=== PATIENT | female | born 1955 | race African-American/Black ===

== ENCOUNTER 2021-04-30 15:13 | Inpatient (IN) | payer OTHER, BC ==
[~2021-04-30] VITALS: Ht 157.5 cm; Wt 77.6 kg
--- NOTE | ~2021-04-30 | EMS ---
[place] [address] EMS Patient Care Report Name: ALEKSEY MALDONADO Room #: REG MICAELA Green#: [id number] Admission: 04/30/21 Attend Phys: Discharge: Date of : 53 Report #: [id number] THIS REPORT FOR: //name// Report Transmitted: 04/30/2021 15:32 EMS Care Summary [place], [place]/[facility] Incident [id number] @ 04/30/2021 14:33 Incident Location [address] [place] [address] Patient ALEKSEY MALDONADO Female, 65 Years 1955 Patient Address [address] [place] [address] Patient History Hypertension (HTN),End Stage Renal Disease (ESRD),Dialysis,Type 2 Diabetes, Patient Allergies No known allergies, Patient Medications Carvedilol, Renvela, Lantus, Novolog, Chief Complaint generalized weakness Disposition Transported No Lights/[place] Dispatch Reason Sick Person Transported To [facility] Narrative pt found sitting upright on floor and alert. pt a&ox4 gcs 15 and did not present in apparent distress. pt complained of generalized weakness x5 hrs. pt stated shes missed x2 dialysis appts. pt requested to be transported to [facility]. pt was advised sle is on high volume and was given c and [facility] [place] [address] EMS Patient Care Report Name: ALEKSEY MALDONADO Room #: REG [facility].#: [id number] Admission: 04/30/21 Attend Phys: Discharge: Date of : 53 Report #: [id number] appropriate facilities. pt requested to be transported to [facility] and pts family on scene agreed. pt stated her legs are too weak to bare weight and pt has been using a wheelchair. pt was moved from house via stairchair. pts family was advised to contact [facility] regarding visitor policy. pt was transferred onto ems cot and was secured in a semi fowlers position without incident. pt was loaded into ambulance. iv access was sought after but was not attempted to no available vasculature. pt was transported non emergent. transport was uneventful and pt rested on ems cot. pt care was transferred to appropriate staff and ems goes back in service. Initial Vitals @14:56P: 80,R: 20,BP: 178/70,Pain: 0/10,GCS: 15,Glucose: 295,SpO2: 95,Revised Trauma: 12, @15:10P: 80,R: 20,BP: 162/56,GCS: 15,SpO2: 95,Revised Trauma: 12, Assessments @14:44MENTAL:No Abnormalities,SKIN:No Abnormalities,HEENT:Head/Face: No Abnormalities,Eyes: No Abnormalities,Neck/Airway: No Abnormalities,LUNG SOUNDS:General: No Abnormalities,Left Upper: No Abnormalities,Right Upper: No Abnormalities,Left Lower: No Abnormalities,Right Lower: No Abnormalities,ABDOMEN:General: No Abnormalities,Left Upper: No Abnormalities,Right Upper: No Abnormalities,Left Lower: No Abnormalities,Right Lower: No Abnormalities,PELVIS//GI:No Abnormalities,EXTREMITIES:Left Arm: No Abnormalities,Right Arm: No Abnormalities,Left Leg: No Abnormalities,Right Leg: No Abnormalities,PULSE:NEURO:No Abnormalities,@14:59MENTAL:No Abnormalities,SKIN:No Abnormalities,HEENT:Head/Face: No Abnormalities,Eyes: No Abnormalities,Neck/Airway: No Abnormalities,LUNG SOUNDS:General: No Abnormalities,Left Upper: No Abnormalities,Right Upper: No Abnormalities,Left Lower: No Abnormalities,Right Lower: No Abnormalities,ABDOMEN:General: No Abnormalities,Left Upper: No Abnormalities,Right Upper: No Abnormalities,Left Lower: No Abnormalities,Right Lower: No Abnormalities,PELVIS//GI:No Abnormalities,EXTREMITIES:Left Arm: No Abnormalities,Right Arm: No Abnormalities,Left Leg: No Abnormalities,Right Leg: No Abnormalities,PULSE:NEURO:No Abnormalities, Impression Generalized Weakness Procedures @14:44 ALS Assessment Response: UnchangedSucceeded Timeline 14:32,Call Received 14:32,Dispatch Notified 14:33,Dispatched [address] [address] EMS Patient Care Report Name: ALEKSEY MALDONADO Room #: YANIQUE Green#: [id number] Admission: 04/30/21 Attend Phys: Discharge: Date of : 53 Report #: [id number] 14:35,En Route 14:43,On Scene 14:44,At Patient 14:44,ALS Assessment,Response: UnchangedSucceeded, 14:56,BP: 178/70 M,PULSE: 80,RR: 20 R,SPO2: 95 Ox,ETCO2: ,B,PAIN: 0,GCS: 15, 14:57,Depart Scene 15:10,BP: 162/56 M,PULSE: 80,RR: 20 R,SPO2: 95 Ox,ETCO2: ,BG: ,PAIN: ,GCS: 15, 15:11,At Destination 15:20,Call Closed Disclaimer v1.1 Copyright 2020 [employer] This EMS Care Summary contains data elements from the applicable legal record (which may be displayed differently). It is designed to provide pertinent information for the following purposes: continuity of care, clinical quality, and state data reporting. The complete legal record is available to ED staff and administrators of the receiving hospital in ES's Patient Tracker. All data is provided "as is."
[2021-04-30 15:15] VITALS: BP 183/83
[2021-04-30 17:02] LABS: ABSOLUTE NEUTROPHILS 6.1 thou/uL (1.4-8.2); BASOPHILS 0.6 % (0.0-2.0); EOSINOPHILS 1.2 % (0.0-3.0); HEMOGLOBIN 9.8 gm/dL (12.0-15.0); LYMPHOCYTES 10.1 % (24.0-44.0); MCH 28.6 pg (26.0-34.0); MCHC 32.7 g/dL (28.0-37.0); MCV 87.3 fL (80.0-100.0); MONOCYTES 6.3 % (1.0-8.0); PLATELET COUNT 201 thou/uL (150-400); POLYS 81.8 % (36.0-66.0); RBC 3.44 mil/uL (4.20-5.00); RDW 15.5 % (10.5-14.5); WBC 7.4 thou/uL (4.0-11.0)
[2021-04-30 17:22] LABS: ALBUMIN 3.1 g/dL (3.4-5.0); CALCIUM 8.4 mg/dL (8.5-10.1); CREATININE 11.4 mg/dL (0.6-1.0); TOTAL BILIRUBIN 0.4 mg/dL (0.2-1.0); TOTAL PROTEIN 7.5 g/dL (6.4-8.2)
[2021-04-30 17:36] LABS: POTASSIUM 6.6 mmol/L (3.5-5.1)
[2021-04-30 18:39] VITALS: BP 172/77
[2021-04-30 19:26] VITALS: BP 162/70
[2021-04-30] MEDS ORDERED: CARVEDILOL12.5 MG PO (19:39)
[2021-04-30] MEDS ORDERED: LIPITOR40 MG PO (19:40)
[2021-04-30] MEDS ORDERED: LANTUS SUBQ (19:40)
[2021-04-30 20:59] VITALS: BP 147/96
[2021-05-01] MEDS ORDERED: HUMALOG100 UNIT/1 SUBQ (00:41)
[2021-05-01 01:02] VITALS: BP 165/81
[2021-05-01 04:26] VITALS: BP 157/74
[2021-05-01 06:05] LABS: HEMATOCRIT 26.7 % (37.0-47.0); MCH 29.9 pg (26.0-34.0); MCHC 33.9 g/dL (28.0-37.0); MCV 88.2 fL (80.0-100.0); RBC 3.03 mil/uL (4.20-5.00); RDW 15.7 % (10.5-14.5); WBC 6.5 thou/uL (4.0-11.0)
[2021-05-01 06:14] LABS: CALCIUM 7.8 mg/dL (8.5-10.1); CREATININE 11.7 mg/dL (0.6-1.0); MAGNESIUM 2.3 mg/dL (1.8-2.4)
--- NOTE | 2021-05-01 07:33 | NUR ---
PT BROUGHT TO FLOOR AT 2030 FROM ER. UPON ARRIVAL PT WAS IN A LIQUID BOWEL MOVEMENT. PT ASSESSED TO BE AOX4 65F PRESENTING WITH WEAKNESS, MISSED DIALYSIS, AND POSSIBLE CDIFF. BELIEVE PT DEFINITELY HAS CDIFF, SAMPLE SENT. UPON ASSESSMENT OF VITALS FOUND HTN AND BLOOD SUGAR OF 32. REPORTED TO TEXTILE MACHINE MAINTENANCE MECHANIC AND PUSHED ONE AMP OF D50. BLOOD SUGAR BROUGHT UP TO 76. RECHECKED LATER AFTER APPLE JUICE AND WAS 69, GAVE ANOTHER AMP OF D50 PER TEXTILE MACHINE MAINTENANCE MECHANIC AND ALLOWED PT A RENAL DIET AND ATE A PACK LUNCH. AFTERWARD SUGARS CORRECTED TO ABOVE 200. THROUGHOUT THE NIGHT CLEANED UP PT MULTIPLE TIMES FROM LIQUID BM. ALL ADMIT CHECKLIST COMPLETED, PT SR ON MONITOR. AWAITING DIALYSIS FOR CORRECTION OF FLUID IMBALANCE AND BP. HYPERKALEMIA RETURNING TO NORMAL SLOWLY. WILL HAVE DIALYSIS IN AM. WILL CONT TO MONITOR.
[2021-05-01 08:55] VITALS: BP 177/103
--- NOTE | 2021-05-01 10:16 | EKG ---
[address] [place] [address] ELECTROCARDIOGRAM REPORT Name: ALEKSEY MALDONDAO Room #: 464-P ADM IN M.R.#: [id number] Admission: 04/30/21 Attend Phys: Roosevelt Crump MD Discharge: Date of : 53 Report #: [id number] [facility] ED Test Date: 2021-04-30 Test Time: 16:00:46 Pat Name: ALEKSEY MALDONADO Department: Room: 464 Gender: F Bin Packer: SKYLER : 1955 Requested By: Pino Lawrence Order Number: [id number] MD: Donal Alex Measurements Intervals [place] Rate: 80 P: 53 IL: 166 QRS: -13 QRSD: 81 T: 14 QT: 418 QTc: 483 Interpretive Statements Sinus rhythm Probable left atrial enlargement Baseline wander in lead(s) I,II,aVR No previous ECG available for comparison Electronically Signed On 05-01-2021 10:16:42 OPERATOR by Donal Alex [email or web address] <ELECTRONICALLY SIGNED> By: Donal Alex MD 05/01/21 1016 [facility] Donal Alex MD /STEPHENIE
--- NOTE | 2021-05-01 13:40 | NUR ---
PT RESTING COMFORTABLY. HD TODAY AT BEDSIDE, PT HAD 3L OFF OVER 3.5 HOURS, PER HD RN. VSS STABLE THROUGHOUT TX AND POST TX. PT AFEBRILE, ANEURIC, NO BM, GOOD APPETITE. CBG BEGINING TO SHOW SIGNS OF LEVELING OUT TO BASELINE. PT HAS BEEN THROUGHLY UPDATED AND EDUCATED ON PT CONDITION AND POC. PT SLOWLY PROGRESSING TOWARDS POC.
[2021-05-01 17:14] VITALS: BP 136/61
[2021-05-01 19:23] VITALS: BP 157/79
[2021-05-02 04:42] VITALS: BP 146/61
[2021-05-02 05:32] LABS: HEMOGLOBIN 9.2 gm/dL (12.0-15.0)
[2021-05-02 05:34] LABS: HEMATOCRIT 27.8 % (37.0-47.0); MCH 29.4 pg (26.0-34.0); MCV 88.9 fL (80.0-100.0); RBC 3.13 mil/uL (4.20-5.00); WBC 8.5 thou/uL (4.0-11.0)
[2021-05-02 05:44] LABS: CALCIUM 7.7 mg/dL (8.5-10.1)
[2021-05-02 06:30] LABS: CREATININE 6.5 mg/dL (0.6-1.0); POTASSIUM 4.5 mmol/L (3.5-5.1)
--- NOTE | 2021-05-02 07:23 | NUR ---
ASSUMED CARE OF PT AT 1900. PT ASSESSED TO BE AOX4 65F PRESENTING WITH WEAKNESS, STG 4 RENAL WITH EXACERBATION D/T MISSED DIALYSIS, AND HYPERKALEMIA. PT RESTED THROUGHOUT THE NIGHT IN ROOM WITH NO COMPLAINTS, VSS.
[2021-05-02 08:12] VITALS: BP 160/79
--- NOTE | 2021-05-02 13:22 | NUR ---
CONSULT RECEIVED TO EVALUATE REHAB NEEDS. INFORMATION ASSURANCE SPECIALIST REVIEWED DOCUMENTATION WITH NEDRA CROWDER NP VIA PHONE CALL. PT/OT EVALS INDICATE PT IS LOW LEVEL AND HAS BEEN UNABLE TO AMBULATE FOR APPROX 1 MONTH. PT APPROPRIATE FOR CONTINUED THERAPIES POST DC AT SNF LEVEL. SHE WILL REQUIRE A LONGER STAY TO ACHIEVE GOALS TO RETURN HOME AND NAVIGATE STAIRS IN SPLIT LEVEL HOME. PT UNABLE TO TOLERATE 3 HOURS OF THERAPY. LIASON MET WITH PT AND SHE IS AGREEABLE TO PLAN FOR DC TO SNF. THANK YOU FOR THIS CONSULTATION.
--- NOTE | 2021-05-02 16:15 | NUR ---
PT ALERT AND ORIENTED TIMES FOUR WITH A FLAT SAD AFFECT. BP ELEVATED THIS MORNING. DR AWARE. PT DENIES PAIN/SOA. PT WORKED WELL WITH PHYSICAL THEARPY TODAY, AND WAS UP SITTING IN THE CHAIR. PT GETTING DIAYLSIS TODAY. WILL CONTINUE TO MONITOR.
[2021-05-03 00:15] VITALS: BP 114/50
[2021-05-03 03:54] VITALS: BP 136/57
--- NOTE | 2021-05-03 05:18 | NUR ---
Pt. rested quietly during the night when checked on during frequent rounds. She c/o a headache and po tylenol given (see emar) with some relief noted. Bed alarm is on.
[2021-05-03 05:43] LABS: HEMATOCRIT 27.8 % (37.0-47.0); HEMOGLOBIN 9.1 gm/dL (12.0-15.0); MCH 28.7 pg (26.0-34.0); MCHC 32.6 g/dL (28.0-37.0); MCV 87.9 fL (80.0-100.0); RBC 3.16 mil/uL (4.20-5.00); RDW 15.2 % (10.5-14.5); WBC 5.3 thou/uL (4.0-11.0)
[2021-05-03 06:00] LABS: CALCIUM 8.1 mg/dL (8.5-10.1)
[2021-05-03 06:13] LABS: CREATININE 3.9 mg/dL (0.6-1.0)
[2021-05-03 08:30] VITALS: BP 150/72
[2021-05-03 12:43] VITALS: BP 161/75
[2021-05-03 17:25] VITALS: BP 162/72
[2021-05-04 05:26] LABS: HEMATOCRIT 28.3 % (37.0-47.0); HEMOGLOBIN 9.4 gm/dL (12.0-15.0); MCH 29.2 pg (26.0-34.0); MCHC 33.2 g/dL (28.0-37.0); MCV 88.1 fL (80.0-100.0); RBC 3.21 mil/uL (4.20-5.00); RDW 15.5 % (10.5-14.5); WBC 6.2 thou/uL (4.0-11.0)
[2021-05-04 06:02] LABS: CALCIUM 8.3 mg/dL (8.5-10.1); CREATININE 5.6 mg/dL (0.6-1.0); POTASSIUM 4.1 mmol/L (3.5-5.1)
[2021-05-04 08:45] VITALS: BP 167/61
[2021-05-04 13:58] VITALS: BP 133/62
[2021-05-04 19:00] VITALS: BP 139/64
[2021-05-05] VITALS (7 sets, daily range): BP systolic 118–195; BP diastolic 56–108
--- NOTE | 2021-05-05 07:55 | NUR ---
ASSUMED CARE AT 1900, PT COMPLIANT OF TX, SLEPT THROUGH THE NIGHT, NO ADVERSE REACTION NOTED, CALL LIGHT AND BELONGINGS WITHIN REACH, WILL CONTINUE TO MONITOR.
--- NOTE | 2021-05-05 16:59 | NUR ---
PT ADMITTED RELATED TO ESRD AND HYPER K. CM REVIEWED CHART AND SPOKE WITH CARE TEAM. CM MET WITH PT AT BEDSIDE THIS DAY. PT APPEARED TO BE A&O X4. CM ROLE INTRODUCED. PT INDICATED SHE LIVES IN A HOUSE WITH HER DTR, DEBORA, AND NIECE. PT INDICATED THERE ARE WITHER 8 OR 2 STEPS TO ENTER AND 14 INSIDE. PT INDICATED SSHE HAS A WC, CANE, AND FWW FOR HOME USE. PT INDICATED SHE HAD BEEN AT [facility] FOR 2 WEEKS ABOUT 3 WEEKS AGO. PT INDICATED HE PSP IS AT [facility]. PT INDICATED SHE NEEDED HELP WITH ADLS AUDIO VISUAL ENGINEER. 5N ASSED AND INDICATED THAT PT IS MORE APPROPRIATE FOR SKILLED POST ACUTE CARE STAY. CM PROVIDED LIST. PT ASKED THAT REFERRALS BE SENT TO [facility]. [facility], AND [facility]. PT DOES DIALYSIS T, R, S, 6:45 CHAIR TIME SWOPR DCI. SHE INDICATED HER NIECE DRIVES HER AND THAT SHE WILL SWITCH TO MWF 11:45 COME MAY 19.
[2021-05-06 08:08] VITALS: BP 149/76
[2021-05-06] MEDS ORDERED: LOPERAMIDE 2 MG2 MG PO (14:06)
--- NOTE | 2021-05-06 14:59 | NUR ---
[facility] AND [facility] INDICATED THEY COULD ACCEPT PT. [facility]IA[facility] VISITED PT THIS AM. PT INDICATED DESIRE TO DC TO [facility]. THEY DISCUSSED DOING IN HOUSE DIALYSIS THERE AND PT WAS AGREEABLE. CARE TEAM INDICATED THAT PT IS MEDICALLY STABLE TO DC THIS DAY. CHART COPY MADE. ORDERS, SUMMERY, AND FLOW SHEETS FAXED TO FACILITY. [facility] WAS ARRANGED FOR TESTING COORDINATOR BETWEEN [phone]. PT AND HER NIECE ARE AWARE AND AGREEABLE. NURSE GIVEN NUMBER FOR REPORT. NO OTHER CM INTERVENTION INDICATED. CASE CLOSED.
--- NOTE | 2021-05-06 15:08 | NUR ---
PT RESTING COMFORTABLY. PLAN TO DC TO [facility] AT 1600 VIA W/C [facility]. PT AFEBRILE, ANEURIC, NO BM, FAIR APPETITE. PT HAS BEEN THOUROUGHLY UDPATED AND EDUCATED ON PT CONDITION AND POC. PT SLOWLY PROGRESSING TOWARDS POC.
== END 2021-05-06 18:06 | DRG 640 ==
LOC: ER 15:13 → EROBS 18:33 → 4W 18:33
PROVIDERS: Emergency Medicine; ADMIT Internal Medicine; ATTEND Internal Medicine
PROC: 5A1D70Z Performance of Urinary Filtration, Intermittent, Less than 6 Hours Per Day (ICD-10-PCS; principal; 2021-04-30)
PROC: 5A1D70Z Performance of Urinary Filtration, Intermittent, Less than 6 Hours Per Day (ICD-10-PCS; 2021-05-05)
DX: E87.5 Hyperkalemia (principal); J96.00 Acute respiratory failure, unspecified whether with hypoxia or hypercapnia; N18.6 End stage renal disease; I12.0 Hypertensive chronic kidney disease with stage 5 chronic kidney disease or end stage renal disease; E87.70 Fluid overload, unspecified; Z20.822 Contact with and (suspected) exposure to COVID-19; E11.22 Type 2 diabetes mellitus with diabetic chronic kidney disease; M17.0 Bilateral primary osteoarthritis of knee; E78.5 Hyperlipidemia, unspecified; Z99.2 Dependence on renal dialysis; Z91.15 Patient's noncompliance with renal dialysis; Z83.3 Family history of diabetes mellitus; Z82.49 Family history of ischemic heart disease and other diseases of the circulatory system; Z91.19 Patient's noncompliance with other medical treatment and regimen
CPT/HCPCS: 10045; 32100